=== PATIENT | male | born 1960 | race Caucasian/White ===

== ENCOUNTER → 2018-04-26 09:23 | Outpatient (CLI) | payer OTHER, SELFPAY ==
--- NOTE | 2018-04-26 09:29 | XR_ITS ---
XR chest 2V HISTORY: Cough and congestion ITS.REASON: PNEUMONIA ORDERING PHYSICIAN: Jany Salazar PATIENT AGE: 57 years COMPARISON: None FINDINGS: The cardiomediastinal silhouette and pulmonary vascularity are within normal limits. Increased markings are present within the lingula consistent with atelectasis and/or infiltrate. There is mild prominence of the left hilum. Recommend follow-up until clear. The right lung is clear. No acute bony anomalies. IMPRESSION: Lingular atelectasis and/or infiltrate with mild prominence of left hilum. Recommend follow-up until clear
== END ==
PROVIDERS: PCP Family Medicine; Visit Provider Nurse Practitioner Family
DX: J18.8 Other pneumonia, unspecified organism (principal)
CPT/HCPCS: 71046